=== PATIENT | female | born 1945 | race Caucasian/White ===

== ENCOUNTER → 2016-11-11 | Outpatient (CLI) | payer OTHER ==
[~2016-11-11] MED LIST: ACETAMINOPHEN650 M3 PO; ALCLOMETASONE; ALPRAZOLAM; AMLODIPINE BESY10 MG PO; AMOXICILLIN PO; ASPIRIN; ASPIRIN PO; ASPIRIN81 M1 PO; ASPIRIN81 M2 PO; ASPIRIN81 MG PO; AUGMENTIN875 MG PO; BACLOFEN10 MG PO; BENADRYL PO; BENADRYL25 M1 PO; BENADRYL25 MG PO; CLONAZEPAM0.5 MG PO; COUMADIN2.5 MG PO; CRESTOR; DARVOCET-N 1001 TA1 PO; DARVOCET-N 1001 TAB; DARVOCET-N 1001 TAB PO; DESYREL100 MG; EFFEXOR PO; GLUCOPHAGE XR500 MG; GLUCOTROL PO; HUMALOG MIX 75/23 ML SUBQ; HUMALOG100 U/ML; HUMULIN N VIAL SQ; HYDROCHLOROTH12.5 MG PO; HYDROCODONE-APA1 T41 PO; KLONOPIN PO; KLONOPIN0.5 MG PO; KLONOPIN1 MG PO; LIPITOR40 MG PO; LISINOPRIL PO; LISINOPRIL-HCTZ1 T19; LISINOPRIL5 MG PO; LOPID600 MG PO; LORTAB 7.5-5001 TAB; LORTAB 7.5-5001 TAB PO; MEDROL PO; METFORMIN; METFORMIN HCL500 M1 PO; METFORMIN HCL500 M3 PO; METFORMIN PO; METHIMAZOLE5 MG PO; METOPROLOL TAR25 MG PO; MULTI VITAMIN1 EACH PO; MULTI-VITAMIN1 TAB PO; NORVASC PO; NORVASC10 MG PO; NOVOLIN N100 UNIT/1 SQ; NOVOLIN N100 UNIT/1 SUBQ; NOVOLIN R100 UNITS/ SQ; NOVOLIN R100 UNITS/ SUBQ; NYSTATIN30 GM PO; PAIN RELIEF EX500 MG PO; PHENERGAN PO; PRAVACHOL PO; PREDNISONE PO; PRISTIQ PO; PROPRANOLOL PO; PROZAC PO; PROZAC40 MG PO; TOPAMAX25 MG PO; TOPIRAMATE25 MG PO; TOPROL XL; TRIAMCINOLONE A15 G2 EXT; TRICOR PO; TRICOR134 MG PO; VENLAFAXINE HC150 M1 PO; VITAMIN D 4001 UDTAB PO; VYTORIN 10-40 M1 TAB PO; VYTORIN 10/40 T1 TAB; WELLBUTRIN; [UNRECOGNIZED DRUG - OTHER]
[2016-11-11 11:49] LABS: ALBUMIN SERUM 4.3 g/dL (3.5-5.0); BILIRUBIN,TOTAL 0.4 mg/dL (0.2-2.0); BUN/CREATININE RATIO 22.72; CREATININE SERUM 1.1 mg/dL (0.6-1.4); GLOM FILT RATE Estimated 52.3 mL/min (>60); PROTEIN TOTAL SERUM 7.5 g/dL (6.0-8.3)
== END | disposition home or self-care (01) ==
LOC: CAMB 08:18
PROVIDERS: Surgery
DX: Z01.812 Encounter for preprocedural laboratory examination (principal); K80.20 Calculus of gallbladder without cholecystitis without obstruction
CPT/HCPCS: 36415; 80053; 87086

== ENCOUNTER → 2016-11-18 | Day surgery (SDC) | payer OTHER ==
--- NOTE | ~2016-11-18 | OR ---
Unit #: [id number] #: [id number] Patient: CULLEN ORTEGA [id number] [address] [place], [place] [address] [id number] O MR#: [id number] NAME: CULLEN ORTEGA ROOM: Date of Procedure: 11/18/2016 Admission Date: 11/18/2016 Surgeon: Won Miranda Jr., M.D. : 1945 Attending Physician: Won Miranda Jr., M.D. Primary Care Physician: Jaime Gill Jr., M.D. OPERATIVE REPORT INDICATIONS FOR PROCEDURE The patient is a 71-year-old white female, who has had some intermittent biliary colic like symptoms with right upper quadrant abdominal pain and noted to have evidence of cholelithiasis. She was seen in the office. Discussion regarding options was carried out. The patient has elected to go ahead with laparoscopic cholecystectomy. The patient understands the procedure including the risks, including that of common duct injury, biliary leak, and bleeding, and intra-abdominal organ injury, and consents. PREOPERATIVE DIAGNOSIS Chronic cholecystitis with cholelithiasis. POSTOPERATIVE DIAGNOSIS Chronic cholecystitis with cholelithiasis also noting some adhesions in the lower abdominal wall area. ANESTHESIA General with endotracheal intubation. PROCEDURE PERFORMED Laparoscopic cholecystectomy. DESCRIPTION OF PROCEDURE The patient was positioned in supine position. After being anesthetized and intubated, she was prepped and draped in routine fashion for laparoscopic cholecystectomy. A small supraumbilical incision was made approximately a 1 cm in length. This was carried down to the fascia. The fascia was lifted between 2 Ivan clamps and a Veress needle introduced in the abdomen. The abdomen was then inflated with CO2 gas. A 5-mm port was introduced into the abdomen followed by the camera. There was no evidence of any injury related to introduction of the camera or the port or the Veress needle. Brief intra-abdominal exploration was carried out. The patient noted to have what appeared to be a chronically inflamed gallbladder and somewhat globular liver and some adhesions of the omentum to the anterior abdominal wall inferiorly. Two 5-mm ports were placed laterally and 11-mm port just right of the upper midline. The gallbladder was lifted. Multiple adhesions were pulled free of the gallbladder. Dissection was then carried out on the triangle of Calot, cystic duct which was small only 1 mm or 2 mm in diameter was isolated, hemoclipped x4, and divided approximately a 1 cm from its junction with the common duct. The common duct appeared normal. Cystic artery was identified, hemoclipped x3, and divided. The cystic vein was also found in this area, Unit #: [id number] #: [id number] Patient: CULLEN ORTEGA which was hemoclipped and divided. The gallbladder was then removed from its bed with the hook cautery using a current of 20. After it was released, it was placed in an EndoCatch bag and brought out through the larger port site. The port was replaced. Subhepatic space irrigated and checked. There was no evidence of any bleeding or leaks noted. All irrigation fluid and small amount of bile that was spilled with manipulation of the gallbladder was all removed with several sponges packed in and removed directly. After all sponges were completely removed, the area was rechecked. There was no evidence of any bleeding and the clips on cystic duct and cystic artery were intact with no evidence of any leak or bleeding. At this point, the fascia in the larger port site was approximated using a neoClose technique. The CO2 was expressed from the abdomen. The ports were removed. There was no evidence of any bleeding from the port sites. The port sites were injected with 0.5% Marcaine with epinephrine locally and after being irrigated and hemostasis achieved with Bovie cautery, skin edges were approximated with stainless-steel skin clips and skin stapling device. Sterile dressings were applied externally. Estimated blood loss less than 50 mL. The patient received less than 1000 mL crystalloid solution during the procedure. Sponges and instrument counts were correct x3. No drains used. No complications. The patient was taken to the recovery room with stable vital signs in satisfactory condition. Dictated by... Won Miranda Jr., M.D. JMB/justo TD: 11/19/2016 04:01 JOB #: [id number] OPERATIVE REPORT X Won Miranda MD X PROCEDURE OPERATIVE NOTE
== END | disposition home or self-care (01) ==
LOC: CSUR 10:01
PROVIDERS: Surgery
PROC: 0FT44ZZ Resection of Gallbladder, Percutaneous Endoscopic Approach (ICD-10-PCS; principal; 2016-11-18 12:00)
DX: K80.10 Calculus of gallbladder with chronic cholecystitis without obstruction (principal); K66.0 Peritoneal adhesions (postprocedural) (postinfection); I10 Essential (primary) hypertension; E11.9 Type 2 diabetes mellitus without complications; Z79.4 Long term (current) use of insulin; Z79.84 Long term (current) use of oral hypoglycemic drugs; Z79.899 Other long term (current) drug therapy; F32.9 Major depressive disorder, single episode, unspecified; J30.9 Allergic rhinitis, unspecified; I25.10 Atherosclerotic heart disease of native coronary artery without angina pectoris; Z95.5 Presence of coronary angioplasty implant and graft; L40.9 Psoriasis, unspecified; Z87.442 Personal history of urinary calculi; Z98.1 Arthrodesis status; Z90.710 Acquired absence of both cervix and uterus; Z90.49 Acquired absence of other specified parts of digestive tract; Z88.2 Allergy status to sulfonamides; Z88.5 Allergy status to narcotic agent
CPT/HCPCS: 82947; 88304; J0330; J0690; J1650; J2250; J3010

== ENCOUNTER 2017-02-13 00:08 | Emergency (ER) | payer OTHER ==
--- NOTE | ~2017-02-13 | CR173 ---
[facility] A Service of [facility] & [facility] RADIOLOGY TEXT RESULTS PATIENT: CULLEN ORTEGA LOCATION: [facility] : [birth year] UNIT #: [id number] AGE: [address]: Rainer Martinez MD SEX: F ORDER DR: [id number] [facility] [address] [facility]. [place], [place] [address] [id number] E MR#: [id number] Acc #: [id number] NAME: CULLEN ORETGA : 1945 SEX: F STUDY DATE/TIME: 02/13/2017 3:41 UNIT: [facility] ROOM: STUDY DESCRIPTION: CR Knee 3 Views Rt Attending Physician: Rainer Martinez M.D. Ordering Physician: Jayjay Sebastian D.O. Primary Care Physician: Jaime Gill Jr., M.D. MEDICAL IMAGING REPORT This report is preliminary unless electronic signature is present EXAM Right knee series. INDICATIONS Right knee pain after a fall on Thursday. PROCEDURE Three views right knee. COMPARISON None. FINDINGS No acute fracture or dislocation. IMPRESSION No acute findings. Dictated by... Naveen Bella M.D. THIS IS AN ELECTRONICALLY VERIFIED REPORT Naveen Bella M.D. at 02/16/2017 7:21 AM OMA/kassie TD: 02/13/2017 09:49 JOB #: [id number] MEDICAL IMAGING REPORT Page 1 of 1 COPY
--- NOTE | ~2017-02-13 | CR243 ---
[facility] A Service of [facility] & [facility] RADIOLOGY TEXT RESULTS PATIENT: CULLEN ORTEGA LOCATION: [facility] : [birth year] UNIT #: [id number] AGE: [address]: Rainer Martinez MD SEX: F ORDER DR: [id number] [facility] [address] [place], [place] [address] [id number] E MR#: [id number] Acc #: [id number] NAME: CULLEN ORTEGA : 1945 SEX: F STUDY DATE/TIME: 02/13/2017 3:59 UNIT: [facility] ROOM: STUDY DESCRIPTION: CR Thoracic Spine 3 Views Attending Physician: Rainer Martinez M.D. Ordering Physician: Jayjay Sebastian D.O. Primary Care Physician: Jaime Gill Jr., M.D. MEDICAL IMAGING REPORT This report is preliminary unless electronic signature is present EXAM Thoracic spine series INDICATION Back pain after fall on Thursday. PROCEDURE Three views of the thoracic spine. COMPARISON None. FINDINGS Thoracic bodies have preserved height and alignment. Mild degenerative change. IMPRESSION Mild multilevel degenerative change. No acute findings. Dictated by... Naveen Bella M.D. THIS IS AN ELECTRONICALLY VERIFIED REPORT Naveen Bella M.D. at 02/16/2017 7:20 AM OMA/audrey TD: 02/13/2017 09:52 JOB #: [id number] MEDICAL IMAGING REPORT Page 1 of 1 COPY
--- NOTE | ~2017-02-13 | MR18 ---
[facility] A Service of [facility] & [facility] RADIOLOGY TEXT RESULTS PATIENT: CULLEN ORTEGA LOCATION: [facility] : [birth year] UNIT #: [id number] AGE: [address]: Rainer Martinez MD SEX: F ORDER DR: [id number] [facility] [address] [place], [place] [address] [id number] E MR#: [id number] Acc #: [id number] NAME: CULLEN ORTEGA : 1945 SEX: F STUDY DATE/TIME: 02/13/2017 6:14 UNIT: [facility] ROOM: STUDY DESCRIPTION: MR Brain Wo Contrast Attending Physician: Rainer Martinez M.D. Ordering Physician: Jayjay Sebastian D.O. Primary Care Physician: Jaime Gill Jr., M.D. MRI CENTER REPORT This report is preliminary unless electronic signature is present. EXAM MR brain 02/13 INDICATIONS Patient had fall on 02/10/2017 and subsequently became woozy. Patient now disoriented since 02/12/2017 when symptoms worsened. Patient reports headache. History of hypertension. TECHNIQUE Multisequence multiplanar imaging was performed through the brain without contrast in a high field strength magnet. Comparison made with head CT performed the same day. No comparison MRI. FINDINGS Diffusion imaging reveals no evidence of acute or subacute ischemia. Ventricular size and configuration are within normal limits. Increased signal in the periventricular deep white matter is compatible with chronic small vessel ischemic disease. Mild generalized atrophy is present. Major cranial flow voids are maintained. No hemorrhage is seen, there are no masses on this noncontrast study. Craniovertebral junction is normal. The major intracranial flow voids are maintained. IMPRESSION 1. No acute findings in the brain. There is no evidence of acute or subacute stroke, and no hemorrhage is seen. 2. Mild generalized atrophy with chronic small vessel ischemic disease in the white matter. Dictated by... Gerardo Daugherty Jr., M.D. THIS IS AN ELECTRONICALLY VERIFIED REPORT Gerardo Daugherty Jr., M.D. at 02/13/2017 3:53 [address] A Service of [facility] & [facility] RADIOLOGY TEXT RESULTS PATIENT: CULLEN ORTEGA [facility]: [id number] : [birth year] UNIT #: [id number] AGE: [address]: Rainer Martinez MD SEX: F ORDER DR: Willima TD: 02/13/2017 10:22 JOB #: [id number] MRI CENTER REPORT Page 1 of 1 COPY
--- NOTE | ~2017-02-13 | CR172 ---
[facility] A Service of [facility] & [facility] RADIOLOGY TEXT RESULTS PATIENT: CULLEN ORTEGA LOCATION: [facility] : [birth year] UNIT #: [id number] AGE: [address]: Rainer Martinez MD SEX: F ORDER DR: [id number] [facility] [address] [place], [place] [address] [id number] E MR#: [id number] Acc #: [id number] NAME: CULLEN ORTEGA : 1945 SEX: F STUDY DATE/TIME: 02/13/2017 3:41 UNIT: [facility] ROOM: STUDY DESCRIPTION: CR Knee 3 Views Lt Attending Physician: Rainer Martinez M.D. Ordering Physician: Jayjay Sebastian D.O. Primary Care Physician: Jaime Gill Jr., M.D. MEDICAL IMAGING REPORT This report is preliminary unless electronic signature is present EXAM Left knee series INDICATION Left knee pain after a fall on Thursday. PROCEDURE Three views left knee. COMPARISON None. FINDINGS No acute fracture or dislocation. IMPRESSION No acute findings. Dictated by... Naveen Bella M.D. THIS IS AN ELECTRONICALLY VERIFIED REPORT Naveen Bella M.D. at 02/16/2017 7:21 AM OMA/audrey TD: 02/13/2017 09:49 JOB #: [id number] MEDICAL IMAGING REPORT Page 1 of 1 COPY
--- NOTE | ~2017-02-13 | CR58 ---
[facility] A Service of [facility] / [facility] RADIOLOGY TEXT RESULTS PATIENT: CULLEN ORTEGA LOCATION: [facility] : [birth year] UNIT #: [id number] AGE: [address]: Rainer Martniez MD SEX: F ORDER DR: [id number] [id number] [place], [place] [address] [id number] E MR#: [id number] Acc #: [id number] NAME: CULLEN ORTEGA : 1945 SEX: F STUDY DATE/TIME: 02/13/2017 3:54 UNIT: [facility] ROOM: STUDY DESCRIPTION: CR Cervical Spine 2 or 3 Views Attending Physician: Rainer Martinez M.D. Ordering Physician: Jayjay Sebastian D.O. Primary Care Physician: Jaime Gill Jr., M.D. MEDICAL IMAGING REPORT This report is preliminary unless electronic signature is present EXAM Cervical spine series. INDICATION Neck pain after a fall on Thursday. PROCEDURE 5 views of the cervical spine. COMPARISON None FINDINGS Cervical bodies have normal height. Alignment is preserved. Multilevel degenerative change. Craniocervical junction, prevertebral soft tissues, and the dens are intact. Multilevel facet change. IMPRESSION No acute findings. Multilevel degenerative change. Dictated by... Naveen Bella M.D. THIS IS AN ELECTRONICALLY VERIFIED REPORT Naveen Bella M.D. at 02/16/2017 7:20 AM EED/pretty TD: 02/13/2017 09:57 JOB #: [id number] MEDICAL IMAGING REPORT [facility] A Service of [facility] / [facility] RADIOLOGY TEXT RESULTS PATIENT: CULLEN ORTEGA LOCATION: [facility] : 47 UNIT #: [id number] AGE: [address]: Rainer Martinez MD SEX: F ORDER DR: Page 1 of 1 COPY
--- NOTE | ~2017-02-13 | CR106 ---
[facility] A Service of [facility] & [facility] RADIOLOGY TEXT RESULTS PATIENT: CULLEN ORTEGA LOCATION: [facility] : [birth year] UNIT #: [id number] AGE: [address]: Rainer Martinez MD SEX: F ORDER DR: [id number] [facility] [address] [place], [place] [address] [id number] E MR#: [id number] Acc #: [id number] NAME: CULLEN ORTEGA : 1945 SEX: F STUDY DATE/TIME: 02/13/2017 3:38 UNIT: [facility] ROOM: STUDY DESCRIPTION: CR Femur 2 Views Lt Attending Physician: Rainer Martinez M.D. Ordering Physician: Jayjay Sebastian D.O. Primary Care Physician: Jaime Gill Jr., M.D. MEDICAL IMAGING REPORT This report is preliminary unless electronic signature is present EXAM Left femur series INDICATION Left leg pain after a fall on Thursday. PROCEDURE Four views of the left femur. COMPARISON None. FINDINGS No acute fracture or dislocation. IMPRESSION No acute findings. Dictated by... Naveen Bella M.D. THIS IS AN ELECTRONICALLY VERIFIED REPORT Naveen Bella M.D. at 02/16/2017 7:21 AM OMA/audrey TD: 02/13/2017 09:48 JOB #: [id number] MEDICAL IMAGING REPORT Page 1 of 1 COPY
--- NOTE | ~2017-02-13 | CR107 ---
[facility] A Service of [facility] & [facility] RADIOLOGY TEXT RESULTS PATIENT: CULLEN ORTEGA LOCATION: [facility] : 47 UNIT #: [id number] AGE: [address]: Rainer Martinez MD SEX: F ORDER DR: [id number] [facility] [address]. [place], [place] [address] [id number] E MR#: [id number] Acc #: [id number] NAME: CULLEN ORTEGA : 1945 SEX: F STUDY DATE/TIME: 02/13/2017 3:46 UNIT: [facility] ROOM: STUDY DESCRIPTION: CR Femur 2 Views Rt Attending Physician: Rainer Martinez M.D. Ordering Physician: Jayjay Sebastian D.O. Primary Care Physician: Jaime Gill Jr., M.D. MEDICAL IMAGING REPORT This report is preliminary unless electronic signature is present EXAM Right femur series INDICATION Right leg pain after a fall on Thursday. PROCEDURE 3 view of the right femur. COMPARISON None. FINDINGS Right hip arthrosis. No fracture or dislocation. IMPRESSION No acute findings. Dictated by... Naveen Bella M.D. THIS IS AN ELECTRONICALLY VERIFIED REPORT Naveen Bella M.D. at 02/16/2017 7:21 AM OMA/rajendra TD: 02/13/2017 09:59 JOB #: [id number] MEDICAL IMAGING REPORT Page 1 of 1 COPY
--- NOTE | ~2017-02-13 | CR181 ---
[facility] A Service of [facility] & [facility] RADIOLOGY TEXT RESULTS PATIENT: CULLEN ORTEGA LOCATION: [facility] : [birth year] UNIT #: [id number] AGE: [address]: Rainer Martinez MD SEX: F ORDER DR: [id number] [facility] [address] [place], [place] [address] [id number] E MR#: [id number] Acc #: [id number] NAME: CULLEN ORTEGA : 1945 SEX: F STUDY DATE/TIME: 02/13/2017 4:04 UNIT: [facility] ROOM: STUDY DESCRIPTION: CR Lumbar Spine 2 or 3 Views Attending Physician: Rainer Martinez M.D. Ordering Physician: Jayjay Sebastian D.O. Primary Care Physician: Jaime Gill Jr., M.D. MEDICAL IMAGING REPORT This report is preliminary unless electronic signature is present EXAM Lumbar spine series. INDICATIONS Lower back pain after a fall on Thursday. PROCEDURE Two views of the lumbar spine. COMPARISON None. FINDINGS Previous posterior fusion at L4-L5. Multilevel degenerative change. The lumbar bodies maintain normal height. IMPRESSION No acute findings. Dictated by... Naveen Bella M.D. THIS IS AN ELECTRONICALLY VERIFIED REPORT Naveen Bella M.D. at 02/16/2017 7:20 AM OMA/kassie TD: 02/13/2017 09:51 JOB #: [id number] MEDICAL IMAGING REPORT Page 1 of 1 COPY
--- NOTE | ~2017-02-13 | CR230 ---
[facility] A Service of [facility] & [facility] RADIOLOGY TEXT RESULTS PATIENT: CULLEN ORTEGA LOCATION: [facility] : 49 UNIT #: [id number] AGE: [address]: Rainer Martinez MD SEX: F ORDER DR: [id number] [facility] [address] [place], [place] [address] [id number] E MR#: [id number] Acc #: [id number] NAME: CULLEN ORTEGA : 1945 SEX: F STUDY DATE/TIME: 02/13/2017 3:51 UNIT: [facility] ROOM: STUDY DESCRIPTION: CR Shoulder Min 2 View Rt Attending Physician: Rainer Martinez M.D. Ordering Physician: Jayjay Sebastian D.O. Primary Care Physician: Jaime Gill Jr., M.D. MEDICAL IMAGING REPORT This report is preliminary unless electronic signature is present EXAM Right shoulder series INDICATION Right shoulder pain after a fall on Thursday. PROCEDURE Three views of the right shoulder. COMPARISON None. FINDINGS Previous shoulder fixation. Post traumatic deformity. There is no acute fracture or dislocation. IMPRESSION No acute findings. Previous post-traumatic deformity and postsurgical change of the right humerus. Dictated by... Naveen Bella M.D. THIS IS AN ELECTRONICALLY VERIFIED REPORT Naveen Bella M.D. at 02/16/2017 7:20 AM OMA/audrey TD: 02/13/2017 09:50 JOB #: [id number] MEDICAL IMAGING REPORT Page 1 of 1 COPY
--- NOTE | ~2017-02-13 | CR63 ---
[facility] A Service of [facility] & [facility] RADIOLOGY TEXT RESULTS PATIENT: CULLEN ORTEGA LOCATION: [facility] : 47 UNIT #: [id number] AGE: [address]: Rainer Martinez MD SEX: F ORDER DR: [id number] [facility] [address] [place], [place] [address] [id number] E MR#: [id number] Acc #: [id number] NAME: CULLEN ORTEGA : 1945 SEX: F STUDY DATE/TIME: 02/13/2017 3:53 UNIT: [facility] ROOM: STUDY DESCRIPTION: CR Chest 2 View Attending Physician: Rainer Martinez M.D. Ordering Physician: Jayjay Sebastian D.O. Primary Care Physician: Jaime Gill Jr., M.D. MEDICAL IMAGING REPORT This report is preliminary unless electronic signature is present EXAM Two-view chest INDICATIONS Chest pain after fall on Thursday. PROCEDURE Frontal and lateral views of the chest. COMPARISON 08/29/2016 FINDINGS Heart size is within normal limits. No new dense consolidation. No pleural fluid. No pneumothorax. IMPRESSION No acute findings. Dictated by... Naveen Bella M.D. THIS IS AN ELECTRONICALLY VERIFIED REPORT Naveen Bella M.D. at 02/16/2017 7:20 AM Jaymie TD: 02/13/2017 09:51 JOB #: [id number] MEDICAL IMAGING REPORT Page 1 of 1 COPY
--- NOTE | ~2017-02-13 | CT71 ---
[facility] A Service [facility] RADIOLOGY TEXT RESULTS PATIENT: CULLEN ORTEGA LOCATION: [facility] : 49 UNIT #: [id number] AGE: [address]: Rainer Martinez MD SEX: F ORDER DR: [id number] [address] [address] [id number] E MR#: [id number] Acc #: [id number] NAME: CULLEN ORTEAG : 1945 SEX: F STUDY DATE/TIME: 02/13/2017 4:15 UNIT: [facility] ROOM: STUDY DESCRIPTION: CT Head Wo Contrast Attending Physician: Rainer Martinez M.D. Ordering Physician: Jayjay Sebastian D.O. Primary Care Physician: Jaime Gill Jr., M.D. MEDICAL IMAGING REPORT This report is preliminary unless electronic signature is present EXAM CT head without contrast INDICATION Head pain after a fall 2 days ago. PROCEDURE Unenhanced CT of the head. This CT examination was performed with one or more of the following radiation dose reduction techniques: automatic exposure control, adjustment of mA and/or kV according to patient size, and iterative reconstruction. COMPARISON 09/08/2014. FINDINGS No acute fracture or dislocation. No calvarial fracture. The paranasal sinuses and the mastoid air cells are clear. IMPRESSION No acute intracranial findings. Dictated by... Naveen Bella M.D. THIS IS AN ELECTRONICALLY VERIFIED REPORT Naveen Bella M.D. at 02/16/2017 7:20 AM EEGama/audrey TD: 02/13/2017 09:53 JOB #: [id number] [facility] A Service [facility] RADIOLOGY TEXT RESULTS PATIENT: CULLEN ORTEGA LOCATION: [facility] : 49 UNIT #: [id number] AGE: [address]: Rainer Martinez MD SEX: F ORDER DR: MEDICAL IMAGING REPORT Page 1 of 1 COPY
[2017-02-13 05:46] LABS: BASOPHIL# 0.1 X10e3 (0-0.3); BASOPHIL% 0.5 % (0-2.5); EOSINOPHIL# 0.9 X10e3 (0-0.7); EOSINOPHIL% 7.2 % (0.0-7.0); HEMATOCRIT 40.6 % (35.0-45.0); LYMPHOCYTE# 3.4 X10e3 (1.0-3.5); LYMPHOCYTE% 27.1 % (17.0-45.0); MEAN CELL VOLUME 87.4 FL (83-96); MEAN CORPUSCULAR HGB CONC 32.1 g/dL (30-36); MEAN PLATELET VOLUME 8.5 FL (6.5-11.5); MONOCYTE% 7.8 % (3.0-12.0); NEUTROPHIL# 7.2 X10e3 (1.5-7.1); NEUTROPHIL% 57.4 % (40-75); PLATELET COUNT 270 X10e3 (140-420); RED BLOOD COUNT 4.65 X10e (3.90-5.30); RED CELL DISTRIBUTION WIDTH 14.9 % (11.0-15.5); WHITE BLOOD COUNT 12.6 X10e3 (4.0-10.5)
[2017-02-13 05:47] LABS: DIFF IND NO
[2017-02-13 05:50] LABS: POC - TROPONIN <0.05 ng/mL (<=0.05)
[2017-02-13 05:52] LABS: URINE SOURCE CLEAN CATCH
[2017-02-13 05:58] LABS: URINE APPEARANCE CLEAR; URINE BILIRUBIN NEG (NEG); URINE BLOOD NEG (NEG); URINE COLOR DK YELLOW; URINE GLUCOSE NEG (NEG); URINE KETONE TRACE (NEG); URINE LEUKOCYTE ESTERASE 2+ (NEG); URINE NITRATE NEG (NEG); URINE PH 6.5 (5-8); URINE PROTEIN NEG (NEG); URINE SPECIFIC GRAVITY 1.019 (1.003-1.035)
[2017-02-13 05:59] LABS: CULTURE INDICATED? YES; URBCS1 AUWI 0-2 /[HPF] (0-2); URINE BACTERIA AUWI NEG (NEGATIVE); URINE SQUAMOUS EPITHELIAL CELL FEW /[HPF]
[2017-02-13 06:19] LABS: ALBUMIN SERUM 4.4 g/dL (3.5-5.0); BILIRUBIN,TOTAL 0.8 mg/dL (0.2-2.0); CALCIUM SERUM 9.6 mg/dL (8.4-10.2); GLOM FILT RATE Estimated 57.5 mL/min (>60); POTASSIUM 3.7 mmol/L (3.5-5.1); PROTEIN TOTAL SERUM 7.9 g/dL (6.0-8.3)
== END 2017-02-13 07:52 | disposition home or self-care (01) ==
LOC: CED 00:08
PROVIDERS: Emergency Medicine
DX: S00.93XA Contusion of unspecified part of head, initial encounter (principal); S10.93XA Contusion of unspecified part of neck, initial encounter; S80.02XA Contusion of left knee, initial encounter; S80.01XA Contusion of right knee, initial encounter; S70.12XA Contusion of left thigh, initial encounter; S70.11XA Contusion of right thigh, initial encounter; S20.222A Contusion of left back wall of thorax, initial encounter; S20.221A Contusion of right back wall of thorax, initial encounter; F07.81 Postconcussional syndrome; I10 Essential (primary) hypertension; E11.9 Type 2 diabetes mellitus without complications; W01.0XXA Fall on same level from slipping, tripping and stumbling without subsequent striking against object, initial encounter
CPT/HCPCS: 29530; 36415; 70450; 70551; 71020; 72040; 72072; 72100; 73030; 73552; 73562; 80053; 81003; 82553; 84484; 85025; 87086; 90471; 90715; 96372; 99284; J1885